=== PATIENT | male | born 1990 ===

== ENCOUNTER 2018-04-29 11:21 | Inpatient (IN) | payer SELFPAY ==
[2018-04-29 11:21] VITALS: BMI 27.3
[2018-04-29] MEDS ORDERED: MethylPREDNISolone 40 mg Vial IVP STA (11:29)
[2018-04-29] MEDS ORDERED: DiphenhydrAMINE 50 mg/ml Inj ONE (11:30)
[2018-04-29] MEDS ORDERED: DiphenhydrAMINE 50 mg/ml Inj IVP STA (11:32)
--- NOTE | 2018-04-29 11:47 | C.PDOC ---
History Of Present Illness 27 y/o male presents to ED with c/o swelling sensation to throat since he woke up this morning. Patient denies new food or drinks, known allergens, fever, sob , chest pain or any other complaints at this time. Time Seen by Provider: 04/29/18 11:28 Chief Complaint (Nursing): ENT Problem History Per: Patient History/Exam Limitations: no limitations Onset/Duration Of Symptoms: Days Current Symptoms Are (Timing): Still Present Past Medical History Reviewed: Historical Data, Nursing Documentation, Vital Signs Vital Signs: Last Vital Signs Temp 98.1 F 04/29/18 17:30 Pulse 69 04/29/18 17:30 Resp 20 04/29/18 17:30 BP 151/78 H 04/29/18 17:30 Pulse Ox 100 04/29/18 20:17 - Medical History PMH: No Chronic Diseases Surgical History: No Surg Hx - [facility] Procedures CLOSURE SKIN & SUBCUTANEOUS NEC (04/24/13) TETANUS TOXOID ADMINIST (04/24/13) Family History: States: No Known Family Hx - Social History Hx Tobacco Use: Yes Hx Alcohol Use: No Hx Substance Use: No - Immunization History Hx Tetanus Toxoid Vaccination: Yes Hx Influenza Vaccination: No Hx Pneumococcal Vaccination: No Review Of Systems Constitutional: Negative for: Fever, Chills ENT: Positive for: Throat Swelling. Negative for: Mouth Swelling Cardiovascular: Negative for: Chest Pain Respiratory: Negative for: Cough, Shortness of Breath Gastrointestinal: Negative for: Vomiting, Abdominal Pain Musculoskeletal: Negative for: Neck Pain Skin: Negative for: Rash Neurological: Negative for: Weakness, Numbness Physical Exam - Physical Exam Appears: Non-toxic, Other (anxious) Skin: Warm, Dry, No Rash Head: Atraumatic, Normacephalic Eye(s): bilateral: Normal Inspection Ear(s): Bilateral: Normal Nose: No Discharge, No Epistaxis Oral Mucosa: Moist, No Drooling, No Trismus Tongue: Normal Appearing, No Swelling Lips: Normal Appearing, No Swelling Teeth: Normal Dentition Throat: Erythema, No Exudate, No Drooling, Other (markedly enlarged uvula touching tongue) Neck: Supple Cardiovascular: Rhythm Regular, No Murmur Respiratory: Normal Breath Sounds, No Accessory Muscle Use, No Rales, No Rhonchi , No Wheezing Gastrointestinal/Abdominal: Soft, No Tenderness, No Guarding, No Rebound Neurological/Psych: Oriented x3, Normal Speech, Normal Cognition ED Course And Treatment - Laboratory Results Result Diagrams: 04/29/18 11:37 04/29/18 11:37 ECG: Interpreted By Me ECG Rhythm: Sinus Rhythm Rate From EC (BPM) O2 Sat by Pulse Oximetry: 100 (RA) Pulse Ox Interpretation: Normal Medical Decision Making Medical Decision Making: pt with sudden onset on waking of throat swelling- on exam uvula markedly swollen. not on any medications, no new substances, infection vs allergic reaction. Progress: 1:00pm- Mild swelling to lips noted and Uvula mildly worse Consult with Dr. Bear Canela and Dr. Jeremias Canela evaluated patient at bedside, instructed new medication, steroids and instructed patient NPO. All ordered Patient will be re evaluated in 4 hours [id number] pt re-evaluated by Dr Jeremias Canela, pt can go to telemetry per him, discussed with Dr Bear Canela and admitted. Disposition Discussed With Dr.: Fantasma Canela Doctor Will See Patient In The: Hospital - Disposition Disposition: HOSPITALIZED Disposition Time: 15:39 Condition: SERIOUS - Clinical Impression Clinical Impression: Uvulitis - PA / MOHS SURGEON/GENERAL DERMATOLOGIST / Resident Statement MD/DO has reviewed & agrees with the documentation as recorded. - Scribe Statement The provider has reviewed the documentation as recorded by the Virgieibhali Marquez All medical record entries made by the Mariama were at my direction and personally dictated by me. I have reviewed the chart and agree that the record accurately reflects my personal performance of the history, physical exam, medical decision making, and the department course for this patient. I have also personally directed, reviewed, and agree with the discharge instructions and disposition.
[2018-04-29 11:48] LABS: BASO % 0.6 % (0.0-2.0); EOS # 0.1 K/uL (0.0-0.7); EOS % 1.9 % (0.0-4.0); HEMOGLOBIN 15.9 g/dL (12.0-18.0); LYMPH # 2.3 K/uL (1.0-4.3); LYMPH % 40.5 % (20.0-40.0); MEAN CELL VOLUME 91.6 fL (80.0-94.0); MEAN CORPUSCULAR HEMOGLOBIN 32.4 pg (27.0-31.0); MEAN CORPUSCULAR HGB CONC 35.4 g/dL (33.0-37.0); MEAN PLATELET VOLUME 8.8 fL (7.2-11.7); MONO # 0.5 K/uL (0.0-0.8); MONO % 8.5 % (0.0-10.0); NEUT # 2.8 K/uL (1.8-7.0); NEUT % 48.5 % (50.0-75.0); NRBC % 0.1 % (0.0-2.0); RBC 4.91 Mil/uL (4.40-5.90); RED CELL DISTRIBUTION WIDTH 13.4 % (11.5-14.5); WHITE BLOOD COUNT 5.7 K/uL (4.8-10.8)
[2018-04-29 11:55] LABS: ALB/GLOB RATIO 1.6 (1.0-2.1); ALBUMIN 4.9 g/dL (3.5-5.0); ALT/SGPT 79 U/L (21-72); AST/SGOT 38 U/L (17-59); BLOOD UREA NITROGEN 13 mg/dL (9-20); CALCIUM 9.7 mg/dl (8.6-10.4); GFR NON-AFRICAN AMERICAN > 60
[2018-04-29] MEDS ORDERED: Piperacill/Tazo 3.375gm in Dex 3.375 GM/50 ML BAG IVPB STA (12:52)
[2018-04-29] MEDS ORDERED: Acetaminophen IV 1,000 MG in Premixed IV 1 EA IV ONE (13:00)
[2018-04-29] MEDS ORDERED: Piperacillin/Tazobact 3.375 gm 100 ML IVPB ONE (13:11)
[2018-04-29] MEDS ORDERED: Dexamethasone 4 mg/1 ml IV STA (13:12)
[2018-04-29] MEDS ORDERED: Albuterol-Ipratrop 3 mg / 0.5 (3 ml) UD INH STA (13:12)
[2018-04-29] MEDS ORDERED: Glycopyrrolate 1 mg/5mL Inj MDV IV ONE (13:13)
--- NOTE | 2018-04-29 13:20 | RAD ---
Date of service: 04/29/2018 PROCEDURE: CHEST RADIOGRAPH, 1 VIEW HISTORY: left side pain COMPARISON: None available. FINDINGS: LUNGS: Clear. PLEURA: No pneumothorax or pleural fluid seen. CARDIOVASCULAR: Normal. OSSEOUS STRUCTURES: No significant abnormalities. VISUALIZED UPPER ABDOMEN: Normal. OTHER FINDINGS: None. IMPRESSION: No active disease.
[2018-04-29] MEDS ORDERED: Albuterol-Ipratrop 3 mg / 0.5 (3 ml) UD ONE (13:29)
[2018-04-29] MEDS ORDERED: Phenol Topical 1.4% Throat Spray (180 ml) MT ONE (13:30)
[2018-04-29] MEDS ORDERED: Benzocaine 10% Oral Anesthetic (12 ml) MM ONE (13:30)
--- NOTE | 2018-04-29 13:52 | CP.PCM.CON ---
<Alfa Almazan - Last Filed: 04/29/18 14:56> History of Present Illness - History of Present Illness History of Present Illness: ICU Consult note Patient is a 27 year old male who states that he woke up this morning with swelling in his throat. He admits to drinking alcohol recently. He admits to felatio within the past 2 weeks. He denies exposure to any allergens. Denies history of oral ulcers. He is able to speak in full sentences, does not appear short of breath, is not currently drooling. Patient denies chest pain. He denies fevers, chills currently. PMH: none PSH: none Social: admits to alcohol use. Home Meds: none Allergies: NKDA Past Patient History - Past Social History Smoking Status: Light Smoker < 10 Cigarettes Daily - PSYCHIATRIC Hx Substance Use: No Meds Allergies/Adverse Reactions: Allergies Allergy/AdvReac Type Severity Reaction Status Date / Time No Known Allergies Allergy Verified 04/29/18 11:29 - Medications Medications: Current Medications Ceftriaxone Sodium 1 gm/ (Sodium Chloride) 100 mls @ 150 mls/hr IVPB ONCE ONE PRN Reason: Protocol Stop: 04/29/18 14:39 Physical Exam - Constitutional Additional comments: Patient is speaking in full sentences, - Head Exam Head Exam: ATRAUMATIC, NORMOCEPHALIC - Eye Exam Eye Exam: EOMI - ENT Exam ENT Exam: Mucous Membranes Moist Additional comments: Marked uvular edema - Expanded ENT Exam Expanded Mouth exam: moist, tongue normal. absent: drooling, muffled voice Throat exam: absent: Tonsillar Exudate - Neck Exam Neck exam: Positive for: Full Rom - Respiratory Exam Respiratory Exam: Clear to Auscultation Bilateral. absent: Rales, Rhonchi, Wheezes, Stridor - Cardiovascular Exam Cardiovascular Exam: REGULAR RHYTHM, +S1, +S2 - GI/Abdominal Exam GI & Abdominal Exam: Normal Bowel Sounds, Soft. absent: Tenderness - Extremities Exam Extremities exam: Positive for: pedal pulses present. Negative for: calf tenderness - Neurological Exam Neurological exam: Alert, Oriented x3 - Psychiatric Exam Psychiatric exam: Normal Affect, Normal Mood - Skin Skin Exam: Dry, Intact, Warm Results - Vital Signs Recent Vital Signs: Last Vital Signs Temp 97.8 F 04/29/18 12:45 Pulse 83 04/29/18 12:45 Resp 18 04/29/18 12:45 BP 136/80 04/29/18 12:45 Pulse Ox 100 04/29/18 13:45 - Labs Result Diagrams: 04/29/18 11:37 04/29/18 11:37 Labs: Laboratory Results - last 24 hr 04/29/18 04/29/18 11:37 11:37 WBC 5.7 RBC 4.91 Hgb 15.9 Hct 44.9 MCV 91.6 MCH 32.4 H MCHC 35.4 RDW 13.4 Plt Count 312 MPV 8.8 Neut % (Auto) 48.5 L Lymph % (Auto) 40.5 H [place] % (Auto) 8.5 Eos % (Auto) 1.9 Baso % (Auto) 0.6 Neut # (Auto) 2.8 Lymph # (Auto) 2.3 [place] # (Auto) 0.5 Eos # (Auto) 0.1 Baso # (Auto) 0.0 Sodium 144 Potassium 4.3 Chloride 106 Carbon Dioxide 23 Anion Gap 20 BUN 13 Creatinine 0.7 L Est GFR ( Amer) > 60 Est GFR (Non-Af Amer) > 60 Random Glucose 106 Calcium 9.7 Total Bilirubin 0.5 AST 38 ALT 79 H Alkaline Phosphatase 68 Total Protein 7.9 Albumin 4.9 Globulin 3.0 Albumin/Globulin Ratio 1.6 Assessment & Plan - Assessment and Plan (Free Text) Assessment: 27 year old male who presents with swelling in his throat this morning. Patient received Solumedrol, Pepcid, Benadryl without significant improvement initially. Plan: Neuro: Alert and oriented Cardiovascular Stable Pulmonary: Saturating well on RA ENT: Patient received Solumedrol, Pepcid, Benadryl, Zosyn in ED. Glycopyrrolate 0.1mg Duonebs Q5 x3 Oral GC swab obtained Dexamethasone 10mg IV Keep on strict NPO Rocephin 1g IV EKG did not reveal prolonged QTc Azithromycin 500mg IV daily Phenol/menthol antiseptic spray applied topically GI: Strict NPO Renal: Continue to monitor electrolytes Heme H/H stable ID: Continue abx F/u GC culture Dispo: Patient stable to be admitted to Telemetry. Case discussed with Dr. Canela <Cary Canela - Last Filed: 04/29/18 15:35> Meds - Medications Medications: Current Medications Azithromycin 500 mg/ Sodium (Chloride) 250 mls @ 167 mls/hr IVPB Q24H AIDE PRN Reason: Protocol Clindamycin Phosphate 600 mg/ (Sodium Chloride) 54 mls @ 100 mls/hr IVPB Q8H AIDE PRN Reason: Protocol Ketorolac Tromethamine (Toradol) 30 mg IVP Q6H PRN PRN Reason: Pain, severe (8-10) Ketorolac Tromethamine (Toradol) 15 mg IVP Q6H PRN PRN Reason: Pain, moderate (4-7) Pantoprazole Sodium (Protonix Inj) 40 mg IVP DAILY [facility] Results - Vital Signs Recent Vital Signs: Last Vital Signs Temp 97.8 F 04/29/18 12:45 Pulse 81 04/29/18 14:21 Resp 16 04/29/18 14:21 BP 133/75 04/29/18 14:21 Pulse Ox 100 04/29/18 15:29 - Labs Result Diagrams: 04/29/18 11:37 04/29/18 11:37 Labs: Laboratory Results - last 24 hr 04/29/18 04/29/18 04/29/18 11:37 11:37 13:46 WBC 5.7 RBC 4.91 Hgb 15.9 Hct 44.9 MCV 91.6 MCH 32.4 H MCHC 35.4 RDW 13.4 Plt Count 312 MPV 8.8 Neut % (Auto) 48.5 L Lymph % (Auto) 40.5 H [place] % (Auto) 8.5 Eos % (Auto) 1.9 Baso % (Auto) 0.6 Neut # (Auto) 2.8 Lymph # (Auto) 2.3 [place] # (Auto) 0.5 Eos # (Auto) 0.1 Baso # (Auto) 0.0 Sodium 144 Potassium 4.3 Chloride 106 Carbon Dioxide 23 Anion Gap 20 BUN 13 Creatinine 0.7 L Est GFR ( Amer) > 60 Est GFR (Non-Af Amer) > 60 Random Glucose 106 Calcium 9.7 Total Bilirubin 0.5 AST 38 ALT 79 H Alkaline Phosphatase 68 Total Protein 7.9 Albumin 4.9 Globulin 3.0 Albumin/Globulin Ratio 1.6 Urine Opiates Screen Negative Urine Methadone Screen Negative Ur Barbiturates Screen Negative Ur Phencyclidine Scrn Positive H Ur Amphetamines Screen Negative U Benzodiazepines Scrn Negative U Oth Cocaine Metabols Negative U Cannabinoids Screen Negative Assessment & Plan - Assessment and Plan (Free Text) Plan: Patient seen and examined a bedside. Patient presents to [facility] with c/ o swollen uvula. Patient able to articulate well, no hoarsness, no stridor. Patient's symptoms improved with dexamethasone, gycopyrolate and bronchodilators. -STrict NPO -IV ceftriaxone/azithormycine -Patient had recent oral sex; G/C pending. -Patient remains hemodynamically stable. d/w ER team - Date & Time Date: 04/29/18 Time: 15:35
[2018-04-29 14:11] LABS: BARBITURATES, UR NEGATIVE (NEGATIVE); BENZODIAZEPINES, UR NEGATIVE (NEGATIVE); OPIATES, UR NEGATIVE (NEGATIVE)
[2018-04-29 14:30] LABS: PHENCYCLIDINE, UR POSITIVE (NEGATIVE)
[2018-04-29] MEDS ORDERED: Clindamycin 600mg/50ml NS 600 MG/50 ML BAG IVPB ONE (15:38)
[2018-04-29] MEDS ORDERED: Iodixanol 320 MG/ML 100 ML BOTTLE IV ONE (15:51)
[2018-04-29] MEDS ORDERED: Azithromycin 500mg/250ML NS 500 MG/250 ML BAG IVPB ONE (15:58)
[2018-04-29] MEDS ORDERED: Azithromycin 500 MG in Sodium Chloride 0.9% 250 ML IVPB SCH (16:00)
--- NOTE | 2018-04-29 16:52 | CP.PCM.HP ---
<Maite Moore - Last Filed: 04/29/18 19:05> History of Present Illness - History of Present Illness History of Present Illness: cc: enlarged uvula Mr. Aly is a 22 year old male with no significant PMH complaining of enlarged uvula which caused him pain since he woke up this morning. The constant pain is rated 7/10 with radiation to the inside of his R ear. Talking, swallowing, and chewing worsen the pain; internet review instructed him to drink water which did not help. He was unable to describe the pain - just that it felt "weird"; Denied sharp, dull, achy, numb, tingly. Denies trauma to the area, eating anything out of the ordinary, giving oral sex recently, forced vomiting. Admits to gagging nearly every day when brushing his teeth, and spits out blood with toothpaste. He has not gone to the dentist recently and admits to needing dental work done as he has many cavities. He was able to sleep through the night normally. Did not feel pain last night when he was partying. Admits to drinking excessively and smoking last night. Admits odynophagia, dysphagia, excessive salivation, toothache. Denies fever, chills, headache, chest pain, shortness of breath, nausea, vomiting, diarrhea, tongue swelling, angioedema, slurring speech, difficulty speaking, palpitations, change in appetite, wheezing, change in weight, change in vision, change in weight. PMH: denies PSxH: denies FamHx: unknown Med: denies All: NKDA SocHx: tobacco: smokes 1-10 cigarettes/day for last ~15 years, drinks 1L liquor/ day, denies drugs (UDS positive PCP) Full Code Proxy: refused to designate PMD: unknown Present on Admission - Present on Admission Any Indicators Present on Admission: No Review of Systems - Constitutional Constitutional: absent: Chills, Excessive Sweating, Fatigue, Fever, Headache, Lethargy, Weight Gain, Weight Loss, Weakness - EENT Eyes: absent: Blurred Vision, Change in Vision, Diplopia Ears: absent: Ear Pain, Dizziness Nose/Mouth/Throat: Dental Pain, Dysphagia, Odynophagia, Sore Throat. absent: Lip Swelling, Mouth Lesions, Tongue Swelling, Neck Pain, Neck Mass - Cardiovascular Cardiovascular: Pain Radiating to Arm/Neck/Jaw. absent: Chest Pain, Diaphoresis , Dyspnea, Leg Edema, Lightheadedness, Palpitations - Respiratory Respiratory: Excessive Mucous Production. absent: Dyspnea, Wheezing - Gastrointestinal Gastrointestinal: absent: Abdominal Pain, Diarrhea, Fecal Incontinence, Hematemesis, Hematochezia, Nausea, Vomiting - Genitourinary Genitourinary: absent: Dysuria, Hematuria - Musculoskeletal Musculoskeletal: absent: Numbness, Tingling - Integumentary Integumentary: absent: Rash - Neurological Neurological: absent: Dizziness, Numbness, Headaches, Tingling - Endocrine Endocrine: absent: Palpitations - Hematologic/Lymphatic Hematologic: absent: Lymphadenopathy Past Patient History - Past Social History Smoking Status: Light Smoker < 10 Cigarettes Daily Alcohol: None Drugs: Denies, Other (UDS positive for PCP) - PSYCHIATRIC Hx Substance Use: No Meds Allergies/Adverse Reactions: Allergies Allergy/AdvReac Type Severity Reaction Status Date / Time No Known Allergies Allergy Verified 04/29/18 11:29 Physical Exam - Constitutional Appears: Non-toxic, No Acute Distress - Head Exam Head Exam: NORMOCEPHALIC Additional comments: Multiple scars from healed lacerations. - Eye Exam Eye Exam: EOMI, Normal appearance Pupil Exam: NORMAL ACCOMODATION - ENT Exam ENT Exam: Mucous Membranes Moist, Normal External Ear Exam Additional comments: Uvula is midline, enlarged, erythematous. Bilateral enlargement of tonsils. Tonsils were not kissing, non-erythematous, and non-exudative. - Neck Exam Neck exam: Positive for: Lymphadenopathy. Negative for: Thyromegaly - Respiratory Exam Respiratory Exam: Clear to Auscultation Bilateral, NORMAL BREATHING PATTERN. absent: Accessory Muscle Use, Decreased Breath Sounds, Rales, Rhonchi, Wheezes, Respiratory Distress - Cardiovascular Exam Cardiovascular Exam: RRR, +S1, +S2 - GI/Abdominal Exam GI & Abdominal Exam: Normal Bowel Sounds, Soft. absent: Firm, Guarding, Organomegaly, Rebound, Rigid Additional comments: Central obesity. - Rectal Exam Rectal Exam: Deferred - Extremities Exam Extremities exam: Positive for: normal capillary refill, normal inspection, pedal pulses present. Negative for: calf tenderness, pedal edema Additional comments: Radial and dorsalis pedis pulses normal and equal. - Back Exam Back exam: NORMAL INSPECTION - Neurological Exam Neurological exam: Alert, CN II-XII Intact, Oriented x3 - Psychiatric Exam Psychiatric exam: Normal Affect, Normal Mood - Skin Skin Exam: Dry, Intact, Normal Color, Warm Results - Vital Signs Recent Vital Signs: Last Vital Signs Temp 97.8 F 04/29/18 12:45 Pulse 81 04/29/18 14:21 Resp 16 04/29/18 14:21 BP 133/75 04/29/18 14:21 Pulse Ox 100 04/29/18 15:39 - Labs Result Diagrams: 04/29/18 11:37 04/29/18 11:37 Labs: Laboratory Results - last 24 hr 04/29/18 04/29/18 04/29/18 11:37 11:37 13:46 WBC 5.7 RBC 4.91 Hgb 15.9 Hct 44.9 MCV 91.6 MCH 32.4 H MCHC 35.4 RDW 13.4 Plt Count 312 MPV 8.8 Neut % (Auto) 48.5 L Lymph % (Auto) 40.5 H [place] % (Auto) 8.5 Eos % (Auto) 1.9 Baso % (Auto) 0.6 Neut # (Auto) 2.8 Lymph # (Auto) 2.3 [place] # (Auto) 0.5 Eos # (Auto) 0.1 Baso # (Auto) 0.0 Sodium 144 Potassium 4.3 Chloride 106 Carbon Dioxide 23 Anion Gap 20 BUN 13 Creatinine 0.7 L Est GFR ( Amer) > 60 Est GFR (Non-Af Amer) > 60 Random Glucose 106 Calcium 9.7 Total Bilirubin 0.5 AST 38 ALT 79 H Alkaline Phosphatase 68 Total Protein 7.9 Albumin 4.9 Globulin 3.0 Albumin/Globulin Ratio 1.6 Urine Opiates Screen Negative Urine Methadone Screen Negative Ur Barbiturates Screen Negative Ur Phencyclidine Scrn Positive H Ur Amphetamines Screen Negative U Benzodiazepines Scrn Negative U Oth Cocaine Metabols Negative U Cannabinoids Screen Negative Assessment & Plan - Assessment and Plan (Free Text) Assessment: 27yoM with PMH polysubstance abuse admitted for uvulitis. Plan: 1) Uvulitis CXR negative CT soft tissue neck: no evidence of pharyngeal or peritonsillar abscess, mild adenoid hypertrophy, chronic right maxillary sinusitis ENT consulted: Dr. Lu - help appreciated - not allergic type reaction - not phlegmon vs. abscess source of infection - recommends against antibiotics f/u throat cultures for GC and strep received 125mg Solumedrol in ED Started on Solumedrol 60mg IC q8 -steroid taper on d/c tomorrow Monitor for signs of improvement 2) PCP use Patient denies illicit drug use on multiple questionings - does not know if alcohol or cigarettes could have been spiked Considering heavy alcohol use, regular ICDU certainly a possibility Provide Narcotics Anonymous information on discharge 3) Alcohol use No signs of intoxication or withdrawal on exam f/u stat EtOH level Provide Alcoholics Anonymous information on discharge 4) PPx GI: Protonix 40mg IVP daily DVT: risk score 0 -> chemical AC not indicated, SCDs Regular diet d/w Dr. Melany Moore PGY-1 - Date & Time Date: 04/29/18 Time: 16:20 <Fantasma Canela - Last Filed: 04/30/18 18:38> Results - Vital Signs Recent Vital Signs: Last Vital Signs Temp 97.6 F 04/30/18 07:36 Pulse 60 04/30/18 07:36 Resp 20 04/30/18 07:36 BP 154/83 H 04/30/18 07:36 Pulse Ox 99 04/30/18 07:36 - Labs Result Diagrams: 04/30/18 07:29 04/30/18 07:29 Labs: Laboratory Results - last 24 hr 04/29/18 04/30/18 04/30/18 20:16 07:29 07:29 WBC 15.0 H D RBC 4.87 Hgb 15.5 Hct 44.3 MCV 90.9 MCH 31.9 H MCHC 35.1 RDW 12.8 Plt Count 300 MPV 9.3 Neut % (Auto) 90.2 H Lymph % (Auto) 6.3 L [place] % (Auto) 3.2 Eos % (Auto) 0.1 Baso % (Auto) 0.2 Neut # (Auto) 13.6 H Lymph # (Auto) 0.9 L [place] # (Auto) 0.5 Eos # (Auto) 0.0 Baso # (Auto) 0.0 Neutrophils % (Manual) 90 H Band Neutrophils % 1 Lymphocytes % (Manual) 6 L Monocytes % (Manual) 3 Toxic Granulation Present Platelet Estimate Normal Large Platelets Present Anisocytosis (manual) Slight Sodium 139 Potassium 4.4 Chloride 102 Carbon Dioxide 25 Anion Gap 17 BUN 17 Creatinine 0.7 L Est GFR ( Amer) > 60 Est GFR (Non-Af Amer) > 60 Random Glucose 137 H Calcium 9.7 Alcohol, Quantitative 100 H Attending/Attestation - Attestation I have personally seen and examined this patient.: Yes I have fully participated in the care of the patient.: Yes I have reviewed all pertinent clinical information: Yes Notes (Text): 04/30/18 18:38 This is a late entry. History, Physical, Assessment and Plan, and all orders were gone over with resident Dr. Moore on 04/29/18. Fantasma Canela D.O.
--- NOTE | 2018-04-29 16:55 | CT ---
Date of service: 04/29/2018 PROCEDURE: CT NECK WITH CONTRAST HISTORY: Possible Pharyngeal abscess.Uvula erythema/enlarge COMPARISON: None available. TECHNIQUE: CT of the neck with intravenous contrast. Coronal and sagittal reformats generated. Intravenous contrast dose: 100 mL Visipaque Radiation dose: DLP 466.58 mGy-cm This CT exam was performed using one or more of the following dose reduction techniques: Automated exposure control, adjustment of the mA and/or kV according to patient size, and/or use of iterative reconstruction technique. FINDINGS: NASOPHARYNX: Mild adenoid hypertrophy, otherwise within normal limits. SUPRAHYOID NECK: No mass or abnormal enhancement in the oropharynx, oral cavity, parapharyngeal space and retropharyngeal space. No evidence of pharyngeal or peritonsillar abscess. INFRAHYOID NECK: No mass or abnormal enhancement in the larynx, hypopharynx, and supraglottic space. Vocal cords intact. MASS: None. GLANDS: Parotid and submandibular glands unremarkable. Normal size thyroid gland, without nodule. LYMPH NODES: Normal. No lymphadenopathy. CERVICAL SPINE: No fracture or focal lesion. VASCULAR STRUCTURES: Normal intravascular enhancement. OTHER FINDINGS: Moderate polypoid mucosal thickening in the right maxillary sinus. The remaining included paranasal sinuses are clear. The mastoid air cells are clear IMPRESSION: No evidence of pharyngeal or peritonsillar abscess. Mild adenoid hypertrophy. Chronic right maxillary sinusitis.
[2018-04-29 17:36] VITALS: RESP 20
[2018-04-29] MEDS ORDERED: Oxycodone/Acetaminophen 5/325 mg Tab PO STA (21:59)
--- NOTE | 2018-04-30 05:32 | CON ---
DATE: 04/29/2018 REASON FOR CONSULTATION: Enlarged uvula. REQUESTING PHYSICIAN: Emergency room. HISTORY OF PRESENT ILLNESS: This is a 27-year-old male who presented to the ER today with dysphagia since this morning. It was moderate in intensity, constant and pharyngeal. No hoarseness, no nasal congestion, no hearing loss. PAST MEDICAL HISTORY: As noted in the chart by me. MEDICATIONS: As noted in the chart by me. ALLERGIES: NO KNOWN DRUG ALLERGIES. PHYSICAL EXAMINATION: HEAD: Atraumatic and normocephalic. FACE: Good facial movements bilaterally. CONSTITUTIONAL: Well fed, well nourished. COMMUNICATION: Communicates well and appropriately. EXTERNAL NOSE AND EARS: No masses, no lesions, no erythema, and no edema. INTERNAL NOSE: Deviated septum. No masses, no lesions, no erythema, and no edema. ORAL CAVITY AND OROPHARYNX: Enlarged uvula with edema. No masses, no lesions, no erythema, and no edema. LIPS AND GUMS: No masses, no lesions, no erythema, and no edema. NECK: Supple. THYROID: No thyromegaly. No goiter. LYMPH NODES: No lymphadenopathy of the neck. ASSESSMENT: 1. Uvulitis. 2. Deviated septum. PLAN: Steroids. This is usually a viral cause. The patient should be okay to be discharged home by tomorrow. Tho Lu MD
[2018-04-30 07:38] VITALS: BP 154/83; PULSE 60; TEMP 97.6; O2SAT 99
[2018-04-30 07:52] LABS: BASO % 0.2 % (0.0-2.0); EOS % 0.1 % (0.0-4.0); HEMOGLOBIN 15.5 g/dL (12.0-18.0); LYMPH # 0.9 K/uL (1.0-4.3); LYMPH % 6.3 % (20.0-40.0); MEAN CELL VOLUME 90.9 fL (80.0-94.0); MEAN CORPUSCULAR HEMOGLOBIN 31.9 pg (27.0-31.0); MEAN CORPUSCULAR HGB CONC 35.1 g/dL (33.0-37.0); MEAN PLATELET VOLUME 9.3 fL (7.2-11.7); MONO # 0.5 K/uL (0.0-0.8); MONO % 3.2 % (0.0-10.0); NEUT # 13.6 K/uL (1.8-7.0); NEUT % 90.2 % (50.0-75.0); PLATELET COUNT 300 K/uL (130-400); RBC 4.87 Mil/uL (4.40-5.90); RED CELL DISTRIBUTION WIDTH 12.8 % (11.5-14.5)
[2018-04-30 08:10] LABS: BLOOD UREA NITROGEN 17 mg/dL (9-20); CALCIUM 9.7 mg/dl (8.6-10.4); GFR NON-AFRICAN AMERICAN > 60
[2018-04-30 09:21] LABS: ANISOCYTOSIS SLIGHT; BANDS 1 % (0-2); LYMPHOCYTE 6 % (20-40); MONOCYTE 3 % (0-10); NEUTROPHIL 90 % (50-75); PLATELET ESTIMATE NORMAL (NORMAL); TOTAL CELLS COUNTED 100
[2018-04-30 09:22] LABS: LARGE PLATELETS PRESENT; TOXIC GRANULATION PRESENT
--- NOTE | 2018-04-30 09:55 | CP.PCM.PN ---
Subjective - Date & Time of Evaluation Date of Evaluation: 04/30/18 Time of Evaluation: 09:30 - Subjective Subjective: Hospitalist Progress Note Patient was seen and examined at 9:30 AM 04/30/18 364 A Please see Assessment and Plans below for details. Upon FULL ROS Soreness/Pain in the back of the throat has improved. Still with some painful swallowing with dinner of rice and beans last night ( brought in by friends) but less than when he came in NO n/v/d/c NO abdominal pain NO cough NO sinus/nasal congestion NO fever/chills NO joint pain NO chest pain/palpations NO SOB/Wheezing/Dyspnea NO ARRIAGA NO lightheadedness/dizziness NO paresthesias NO new changes in vision NO new changes in hearing Exam: General: AAOX3, NAD HEENT: NCA, EOMI, PERRLA, NO cervical/supraclavicular/submandibular lymphadenopathy, Pharyngea/Uvula erythema and what appears to be a small amount of whitish exudate on the left tonsilar area (could this be left over food?), Nasal Turbinates are nonerythematous/nonedematous, Oral Mucosa is moist Cardio: NS1 and NS2, NO M/R/G Resp: CTA B/L, NO R/R/W GI: BSx4, Soft, NT, NO HSM, NO guarding/rebound tenderness Ext: Pulses are strong and equal, Capillary Refill is 2 seconds, NO edema Neuro: CN II through XII are grossly intact Assessments: 1). Pharyngitis/Uvulitis Soft Tissue Neck with and without contrast was unremarkable but did show Chronic Sinusitis Chest X Ray unremarkable Seen by ENT Dr. Lu: recommends steroid taper WBC elevated but likely secondary to the steroid treatment. NO fevers Symptoms improved and NO evidence of respiratory compromise Considering findings on exam today and the evidence of sinusitis on Soft Tissue Neck will add Augmentin to the Prednisone Taper 2). Hx of Alcohol Use Counseled upon admission 3). Hx of PCP Use UDS positive but patient stated to resident upon discharge that he does not take this drug Disposition: Symptoms have improved and no evidence of respiratory compromise Stable for discharge with outpatient follow up The following instructions were explained to patient and copy will need to be provided to him upon discharge: 1). You stated that you do not have a primary care physician. Therefore please schedule follow up with one of the following clinics (which ever one that you can obtain the earliest appointment) to help coordinate your health care. One of these clinics will be your primary care physician to help set up appointments and provide you with future prescriptions that you will need to have filled at your pharmacy. You will need to follow up the results of your throat cultures through one of these clinices. This appointment must take place in the next 7 days: [facility] Floor B of [facility] ([phone]) [facility] ([phone]) [address] [place], [place] 2). Please have the following prescriptions filled at your pharmacy on your way from the hospital: Augmentin 875/125 mg, 1 tablet by mouth 2 times a day with breakfast and dinner (8 AM and 8 PM), Dispense #28 Prednisone 10 mg, 5 tablets by mouth at once 05/01/18, 4 tablets by mouth at once 05/02/18, 3 tablets by mouth at once 05/03/18, 2 tablet by mouth at once 05/04/18, and 1 tablet by mouth at once 05/05/18. Please take at 8 AM every day Omeprazole 40 mg, 1 tablet by mouth 1 time a day at 8 PM, Dispense #5 3). Please have a faroese yogurt containing probiotic (good bacteria) at 10 AM and 6 PM for the next 44 days to make sure that the good bacteria are brought back into your colon. 4). You must stop drinking alcohol. It will kill you. Please go to Alcohol Anonymous at [facility] located at [address] [place] [address] in [place], [place]. The number is [phone]. 5). You urine tested positive for PCP. This drug will also kill you. call to find resources near you for help. 6). Please take care and be well. 7). Return to the Emergency Room should your symptoms worsen. 8). Please follow the above instructions. Failure to do so will result in serious consequences to your health. Fantasma Canela D.O. Objective - Vital Signs/Intake and Output Vital Signs (last 24 hours): Temp Pulse Resp BP Pulse Ox 97.6 F 60 20 154/83 H 99 04/30/18 07:36 04/30/18 07:36 04/30/18 07:36 04/30/18 07:36 04/30/18 07:36 Intake and Output: 04/30/18 04/30/18 06:59 18:59 Intake Total 590 Balance 590 - Medications Medications: Current Medications Ketorolac Tromethamine (Toradol) 30 mg IVP Q6H PRN PRN Reason: Pain, severe (8-10) Last Admin: 04/29/18 21:19 Dose: 30 mg Ketorolac Tromethamine (Toradol) 15 mg IVP Q6H PRN PRN Reason: Pain, moderate (4-7) Methylprednisolone (Solu-Medrol) 60 mg IV Q8H [facility] Last Admin: 04/30/18 01:21 Dose: 60 mg Pantoprazole Sodium (Protonix Inj) 40 mg IVP DAILY [facility] Last Admin: 04/29/18 16:15 Dose: 40 mg - Labs Labs: 04/30/18 07:29 04/30/18 07:29
--- NOTE | 2018-04-30 10:29 | CP.PCM.DIS ---
Provider - Provider Date of Admission: 04/29/18 15:14 Attending physician: Fantasma Canela MD Primary care physician: none Consults: ICU- Dr. Canela ENT- Dr. Lu Time Spent in preparation of Discharge (in minutes): 35 Hospital Course - Lab Results Lab Results: Most Recent Lab Values WBC 15.0 K/uL (4.8-10.8) H D 04/30/18 07:29 RBC 4.87 Mil/uL (4.40-5.90) 04/30/18 07:29 Hgb 15.5 g/dL (12.0-18.0) 04/30/18 07:29 Hct 44.3 % (35.0-51.0) 04/30/18 07: MCV 90.9 fL (80.0-94.0) 04/30/18 07: MCH 31.9 pg (27.0-31.0) H 04/30/18 07: MCHC 35.1 g/dL (33.0-37.0) 04/30/18 07:29 RDW 12.8 % (11.5-14.5) 04/30/18 07:29 Plt Count 300 K/uL (130-400) 04/30/18 07:29 MPV 9.3 fL (7.2-11.7) 04/30/18 07:29 Neut % (Auto) 90.2 % (50.0-75.0) H 04/30/18 07: Lymph % (Auto) 6.3 % (20.0-40.0) L 04/30/18 07:29 Heard % (Auto) 3.2 % (0.0-10.0) 04/30/18 07:29 Eos % (Auto) 0.1 % (0.0-4.0) 04/30/18 07:29 Baso % (Auto) 0.2 % (0.0-2.0) 04/30/18 07:29 Neut # (Auto) 13.6 K/uL (1.8-7.0) H 04/30/18 07:29 Lymph # (Auto) 0.9 K/uL (1.0-4.3) L 04/30/18 07:29 Heard # (Auto) 0.5 K/uL (0.0-0.8) 04/30/18 07:29 Eos # (Auto) 0.0 K/uL (0.0-0.7) 04/30/18 07:29 Baso # (Auto) 0.0 K/uL (0.0-0.2) 04/30/18 07:29 Neutrophils % (Manual) 90 % (50-75) H 04/30/18 07:29 Band Neutrophils % 1 % (0-2) 04/30/18 07:29 Lymphocytes % (Manual) 6 % (20-40) L 04/30/18 07:29 Monocytes % (Manual) 3 % (0-10) 04/30/18 07:29 Toxic Granulation Present 04/30/18 07:29 Platelet Estimate Normal (NORMAL) 04/30/18 07:29 Large Platelets Present 04/30/18 07:29 Anisocytosis (manual) Slight 04/30/18 07:29 Sodium 139 mmol/L (132-148) 04/30/18 07:29 Potassium 4.4 mmol/L (3.6-5.2) 04/30/18 07:29 Chloride 102 mmol/L (98-107) 04/30/18 07:29 Carbon Dioxide 25 mmol/L (22-30) 04/30/18 07:29 Anion Gap 17 (10-20) 04/30/18 07:29 BUN 17 mg/dL (9-20) 04/30/18 07:29 Creatinine 0.7 mg/dL (0.8-1.5) L 04/30/18 07:29 Est GFR ( Amer) > 60 04/30/18 07:29 Est GFR (Non-Af Amer) > 60 04/30/18 07:29 Random Glucose 137 mg/dL (75-110) H 04/30/18 07:29 Calcium 9.7 mg/dl (8.6-10.4) 04/30/18 07:29 Total Bilirubin 0.5 mg/dL (0.2-1.3) 04/29/18 11:37 AST 38 U/L (17-59) 04/29/18 11:37 ALT 79 U/L (21-72) H 04/29/18 11:37 Alkaline Phosphatase 68 U/L (38-126) 04/29/18 11:37 Total Protein 7.9 g/dL (6.3-8.3) 04/29/18 11:37 Albumin 4.9 g/dL (3.5-5.0) 04/29/18 11:37 Globulin 3.0 gm/dL (2.2-3.9) 04/29/18 11:37 Albumin/Globulin Ratio 1.6 (1.0-2.1) 04/29/18 11:37 Urine Opiates Screen Negative (NEGATIVE) 04/29/18 13:46 Urine Methadone Screen Negative (NEGATIVE) 04/29/18 13:46 Ur Barbiturates Screen Negative (NEGATIVE) 04/29/18 13:46 Ur Phencyclidine Scrn Positive (NEGATIVE) H 04/29/18 13:46 Ur Amphetamines Screen Negative (NEGATIVE) 04/29/18 13:46 U Benzodiazepines Scrn Negative (NEGATIVE) 04/29/18 13:46 U Oth Cocaine Metabols Negative (NEGATIVE) 04/29/18 13:46 U Cannabinoids Screen Negative (NEGATIVE) 04/29/18 13:46 Alcohol, Quantitative 100 mg/dl (0-10) H 04/29/18 20:16 - Hospital Course Hospital Course: Upon hospital admission: Sheeba is a 22 year old male with no significant PMH complaining of enlarged uvula which caused him pain since he woke up this morning. The constant pain is rated 7/10 with radiation to the inside of his R ear. Talking, swallowing, and chewing worsen the pain; internet review instructed him to drink water which did not help. He was unable to describe the pain - just that it felt "weird"; Denied sharp, dull, achy, numb, tingly. Denies trauma to the area, eating anything out of the ordinary, giving oral sex recently, forced vomiting. Admits to gagging nearly every day when brushing his teeth, and spits out blood with toothpaste. He has not gone to the dentist recently and admits to needing dental work done as he has many cavities. He was able to sleep through the night normally. Did not feel pain last night when he was partying. Admits to drinking excessively and smoking last night. Admits odynophagia, dysphagia, excessive salivation, toothache. Denies fever, chills, headache, chest pain, shortness of breath, nausea, vomiting, diarrhea, tongue swelling, angioedema, slurring speech, difficulty speaking, palpitations, change in appetite, wheezing, change in weight, change in vision, change in weight. PMH: denies PSxH: denies FamHx: unknown Med: denies All: NKDA SocHx: tobacco: smokes 1-10 cigarettes/day for last ~15 years, drinks 1L liquor/ day, denies drugs (UDS positive PCP) Full Code Proxy: refused to designate PMD: unknown During hospital course, the patient was evaluated and treated for Uvulitis. CT soft tissue neck: no evidence of pharyngeal or peritonsillar abscess, mild adenoid hypertrophy, chronic right maxillary sinusitis. CXR was negative. ENT consulted: Dr. Lu. It was deemed that he did not have an allergic type reaction. He did not have phlegmon vs. abscess source of infection - antibiotics not recommended. Throat cultures were taken, but results not yet available. He received 125mg Solumedrol in ED and decreased to Solumedrol 60mg IC q8. He will ultimately be d/c'd on a PO steroid taper. The patient did well during this admission, responded well to treatment, and was deemed stable for discharge. Upon hospital discharge, the patient was provided with the following instructions: 1). You stated that you do not have a primary care physician. Therefore please schedule follow up with one of the following clinics (which ever one that you can obtain the earliest appointment) to help coordinate your health care. One of these clinics will be your primary care physician to help set up appointments and provide you with future prescriptions that you will need to have filled at your pharmacy. You will need to follow up the results of your throat cultures through one of these clinices. This appointment must take place in the next 7 days: [facility] Floor B of [facility] ([phone]) [address] [facility] ([phone]) [address] [place] [address] 2). Please have the following prescriptions filled at your pharmacy on your way from the hospital: Augmentin 875/125 mg, 1 tablet by mouth 2 times a day with breakfast and dinner (8 AM and 8 PM), Dispense #28 Prednisone 10 mg, 5 tablets by mouth at once 05/01/18, 4 tablets by mouth at once 05/02/18, 3 tablets by mouth at once 05/03/18, 2 tablet by mouth at once 05/04/18, and 1 tablet by mouth at once 05/05/18. Please take at 8 AM every day Omeprazole 40 mg, 1 tablet by mouth 1 time a day at 8 PM, Dispense #5 3). Please have a kenyan yogurt containing probiotic (good bacteria) at 10 AM and 6 PM for the next 44 days to make sure that the good bacteria are brought back into your colon. 4). You must stop drinking alcohol. It will kill you. Please go to Alcohol Anonymous at [facility] located at [address] [place] [address] in [place], [place]. The number is [phone]. 5). You urine tested positive for PCP. This drug will also kill you. call [phone] to find resources near you for help. 6). Please take care and be well. 7). Return to the Emergency Room should your symptoms worsen. 8). Please follow the above instructions. Failure to do so will result in serious consequences to your health. This is a summary of the patient's hospital admission, see chart for comprehensive detail. - Date & Time of H&P Date of H&P: 04/29/18 Time of H&P: 09:50 Discharge Exam - Additional Findings Additional findings: - Constitutional Appears: Non-toxic, No Acute Distress - Head Exam Head Exam: NORMOCEPHALIC Additional comments: Multiple scars from healed lacerations. - Eye Exam Eye Exam: EOMI, Normal appearance Pupil Exam: NORMAL ACCOMODATION - ENT Exam ENT Exam: Mucous Membranes Moist, Normal External Ear Exam Additional comments: Uvula is midline, non-erythematous. Bilateral enlargement of tonsils (mild). Tonsils were not kissing, non- erythematous, and non-exudative. - Neck Exam Neck exam: Positive for: Lymphadenopathy. Negative for: Thyromegaly - Respiratory Exam Respiratory Exam: Clear to Auscultation Bilateral, NORMAL BREATHING PATTERN. absent: Accessory Muscle Use, Decreased Breath Sounds, Rales, Rhonchi, Wheezes, Respiratory Distress - Cardiovascular Exam Cardiovascular Exam: RRR, +S1, +S2 - GI/Abdominal Exam GI & Abdominal Exam: Normal Bowel Sounds, Soft. absent: Firm, Guarding, Organomegaly, Rebound, Rigid Additional comments: Central obesity. - Extremities Exam Extremities exam: Positive for: normal capillary refill, normal inspection, pedal pulses present. Negative for: calf tenderness, pedal edema Additional comments: Radial and dorsalis pedis pulses normal and equal. - Back Exam Back exam: NORMAL INSPECTION - Neurological Exam Neurological exam: Alert, CN II-XII Intact, Oriented x3 - Psychiatric Exam Psychiatric exam: Normal Affect, Normal Mood - Skin Skin Exam: Dry, Intact, Normal Color, Warm Discharge Plan - Discharge Medications Prescriptions: Amoxicillin/Clavulanate [Augmentin 875 MG-125 MG] 1 tab PO Q12H #28 tab Omeprazole 40 mg PO DAILY #5 - Follow Up Plan Condition: GOOD Disposition: HOME/ ROUTINE Instructions: Sore Throat, Adult (DC), Amoxicillin and Clavulanate, Omeprazole , Prednisone Additional Instructions: The following instructions were explained to patient and copy will need to be provided to him upon discharge: 1). You stated that you do not have a primary care physician. Therefore please schedule follow up with one of the following clinics (which ever one that you can obtain the earliest appointment) to help coordinate your health care. One of these clinics will be your primary care physician to help set up appointments and provide you with future prescriptions that you will need to have filled at your pharmacy. You will need to follow up the results of your throat cultures through one of these clinices. This appointment must take place in the next 7 days: [facility] Floor B of [facility] ([phone]) [address] [facility] ([phone]) [address] [place] [address] 2). Please have the following prescriptions filled at your pharmacy on your way from the hospital: Augmentin 875/125 mg, 1 tablet by mouth 2 times a day with breakfast and dinner (8 AM and 8 PM), Dispense #28 Prednisone 10 mg, 5 tablets by mouth at once 05/01/18, 4 tablets by mouth at once 05/02/18, 3 tablets by mouth at once 05/03/18, 2 tablet by mouth at once 05/04/18, and 1 tablet by mouth at once 05/05/18. Please take at 8 AM every day Omeprazole 40 mg, 1 tablet by mouth 1 time a day at 8 PM, Dispense #5 3). Please have a kenyan yogurt containing probiotic (good bacteria) at 10 AM and 6 PM for the next 44 days to make sure that the good bacteria are brought back into your colon. 4). You must stop drinking alcohol. It will kill you. Please go to Alcohol Anonymous at [facility] located at [address] [place] [address] in [place], [place]. The number is [phone]. 5). You urine tested positive for PCP. This drug will also kill you. call [phone] to find resources near you for help. 6). Please take care and be well. 7). Return to the Emergency Room should your symptoms worsen. 8). Please follow the above instructions. Failure to do so will result in serious consequences to your health.
--- NOTE | 2018-04-30 12:53 | CARD ---
APPROVED REPORT Date of service: 04/29/2018 EKG Measurement Heart [id number] <Conclusion> Normal sinus rhythm Normal ECG,rsr in v1
== END 2018-04-30 11:45 | disposition home or self-care (01) | DRG 159 ==
LOC: C.ER 11:21 → C.9E 15:14 → C.3T 17:04
PROVIDERS: ADMIT Family Medicine; ATTEND Family Medicine
DX: K12.2 Cellulitis and abscess of mouth (principal); J34.2 Deviated nasal septum; F17.210 Nicotine dependence, cigarettes, uncomplicated; J02.9 Acute pharyngitis, unspecified; J32.0 Chronic maxillary sinusitis; F16.90 Hallucinogen use, unspecified, uncomplicated

== ENCOUNTER 2018-09-29 13:45 | Inpatient (IN) | payer MEDICAID ==
[2018-09-29 13:46] VITALS: BMI 27.3
[2018-09-29] MEDS ORDERED: DiphenhydrAMINE 50 mg/ml Inj IVP STA (14:03)
[2018-09-29] MEDS ORDERED: DiphenhydrAMINE 50 mg/ml Inj ONE (14:13)
--- NOTE | 2018-09-29 14:27 | RAD ---
HISTORY: SOB COMPARISON: Chest x-ray performed 04/29/18 TECHNIQUE: Chest, one view. FINDINGS: LUNGS: No focal consolidation. Please note that chest x-ray has limited sensitivity for the detection of pulmonary masses. PLEURA: No significant pleural effusion identified. No definite pneumothorax . CARDIOVASCULAR: Heart size appears within normal limits. No significant atherosclerotic calcification present. OSSEOUS STRUCTURES: No acute osseous abnormality identified. VISUALIZED UPPER ABDOMEN: Unremarkable. OTHER FINDINGS: None. IMPRESSION: No focal consolidation.
[2018-09-29 14:33] LABS: BASO % 0.9 % (0.0-2.0); EOS # 0.1 K/uL (0.0-0.7); EOS % 2.1 % (0.0-4.0); HEMOGLOBIN 16.3 g/dL (12.0-18.0); LYMPH # 1.8 K/uL (1.0-4.3); LYMPH % 40.9 % (20.0-40.0); MEAN CORPUSCULAR HEMOGLOBIN 32.2 pg (27.0-31.0); MEAN CORPUSCULAR HGB CONC 34.7 g/dL (33.0-37.0); MONO # 0.4 K/uL (0.0-0.8); MONO % 8.1 % (0.0-10.0); NEUT # 2.1 K/uL (1.8-7.0); NRBC % 0.1 % (0.0-2.0); RBC 5.05 Mil/uL (4.40-5.90); RED CELL DISTRIBUTION WIDTH 12.8 % (11.5-14.5)
[2018-09-29 14:36] LABS: WHITE BLOOD COUNT 4.5 K/uL (4.8-10.8)
[2018-09-29 14:37] LABS: MEAN CELL VOLUME 92.9 fL (80.0-94.0)
[2018-09-29 14:55] LABS: ALB/GLOB RATIO 1.6 (1.0-2.1); ALBUMIN 4.8 g/dL (3.5-5.0); ALT/SGPT 92 U/L (21-72); AST/SGOT 70 U/L (17-59); BLOOD UREA NITROGEN 9 mg/dL (9-20); CALCIUM 8.8 mg/dl (8.6-10.4); GFR NON-AFRICAN AMERICAN > 60
--- NOTE | 2018-09-29 15:22 | C.PDOC ---
History Of Present Illness 27 year old male presents to ED with complaint of swelling in back of the throat that began when he woke up today. Patient states that the throat swelling makes him nauseous. Patient states that he experienced similar symptoms in April. Patient denies smoking or drinking anything abnormal. Time Seen by Provider: 09/29/18 13:59 Chief Complaint (Nursing): Respiratory Distress History Per: Patient History/Exam Limitations: None Onset/Duration Of Symptoms: Hrs Current Symptoms Are (Timing): Still Present Quality (Mouth/Throat): Swelling (back of throat) Past Medical History Reviewed: Historical Data, Nursing Documentation, Vital Signs Vital Signs: Last Vital Signs Temp 97.1 F L 09/29/18 13:57 Pulse 77 09/29/18 14:27 Resp 17 09/29/18 14:27 BP 146/89 09/29/18 14:27 Pulse Ox 95 09/29/18 14:27 - Medical History PMH: No Chronic Diseases Surgical History: No Surg Hx - [facility] Procedures CLOSURE SKIN & SUBCUTANEOUS NEC (04/24/13) TETANUS TOXOID ADMINIST (04/24/13) Family History: States: Unknown Family Hx - Social History Hx Tobacco Use: Yes Hx Alcohol Use: No Hx Substance Use: No - Immunization History Hx Tetanus Toxoid Vaccination: Yes Hx Influenza Vaccination: No Hx Pneumococcal Vaccination: No Review Of Systems Constitutional: Negative for: Fever, Chills, Weakness ENT: Positive for: Throat Swelling (back of throat) Respiratory: Negative for: Cough Gastrointestinal: Positive for: Nausea Neurological: Negative for: Weakness, Numbness, Dizziness Physical Exam - Physical Exam Appears: Well, Non-toxic, No Acute Distress Skin: Normal Color, Warm, Dry Head: Atraumatic, Normacephalic Eye(s): bilateral: Normal Inspection, PERRL, EOMI Throat: Other (mild uvular and oropharyngeal edema, mild voice changes) Neck: Normal ROM, Supple Respiratory: No Accessory Muscle Use Extremity: Bilateral: Atraumatic, Normal Color And Temperature Neurological/Psych: Oriented x3, Normal Speech, Normal Cognition ED Course And Treatment - Laboratory Results Result Diagrams: 09/29/18 14:26 09/29/18 14:26 Lab Results: Total Bilirubin 0.6 mg/dL (0.2-1.3) 09/29/18 14:26 AST 70 U/L (17-59) H D 09/29/18 14:26 ALT 92 U/L (21-72) H 09/29/18 14:26 Alkaline Phosphatase 77 U/L (38-126) 09/29/18 14:26 Total Protein 7.7 g/dL (6.3-8.3) 09/29/18 14:26 Albumin 4.8 g/dL (3.5-5.0) 09/29/18 14:26 Globulin 2.9 gm/dL (2.2-3.9) 09/29/18 14:26 Albumin/Globulin Ratio 1.6 (1.0-2.1) 09/29/18 14:26 ECG: Interpreted By Me ECG Rhythm: Sinus Rhythm ECG Interpretation: Normal Rate From EC O2 Sat by Pulse Oximetry: 95 Pulse Ox Interpretation: Normal - Radiology CXR: Interpreted by Me CXR Interpretation: Yes: No Acute Disease Progress Note: EKG and chest one view ordered for patient. Labs ordered for patient. Benadryl IVP, Pepcid IVP, methylprednisolone IVP, and Zofran IVP given to patient. Reevaluation Time: 15:20 Reassessment Condition: Improved - Physician Consult Information Outcome Of Conversation: 1415: calls to Dr Garcia, Medicine Stra[employer] Ruling [employer] Operator, no call back. 1430: d/w ICU, lisbet Buckley to ICU- will eval. 1515: d/w lisbet Young to adm to ICU. 1515: d/w Dr. Lu- ENT- recalls pt from 05/10. recommends ICU obs, Solumedrol 100 mg Q8H x 2 after initial ED dose Medical Decision Making Medical Decision Making: spontaneous uvula/OP edema pt woke with same as prior episode no obvious provoking factor stable in ED Disposition Doctor Will See Patient In The: Hospital Counseled Patient/Family Regarding: Studies Performed, Diagnosis - Disposition Disposition: HOSPITALIZED Disposition Time: 15:25 Condition: GOOD - Clinical Impression Clinical Impression: Uvulitis - Scribe Statement The provider has reviewed the documentation as recorded by the Scribe (Patricia Courtney) All medical record entries made by the Scribe were at my direction and personally dictated by me. I have reviewed the chart and agree that the record accurately reflects my personal performance of the history, physical exam, medical decision making, and the department course for this patient. I have also personally directed, reviewed, and agree with the discharge instructions and disposition.
--- NOTE | 2018-09-29 17:55 | CP.PCM.HP ---
Past Patient History - Past Medical History & Family History Past Medical History?: No - Past Social History Smoking Status: Unknown If Ever Smoked - MUSCULOSKELETAL/RHEUMATOLOGICAL Hx Falls: No - PSYCHIATRIC Hx Substance Use: No - ANESTHESIA Hx Anesthesia: No Hx Anesthesia Reactions: No Hx Malignant Hyperthermia: No Meds Allergies/Adverse Reactions: Allergies Allergy/AdvReac Type Severity Reaction Status Date / Time No Known Allergies Allergy Verified 09/29/18 13:59 Physical Exam - Constitutional Appears: Well - Head Exam Head Exam: ATRAUMATIC, NORMAL INSPECTION, NORMOCEPHALIC - Eye Exam Eye Exam: EOMI, Normal appearance, PERRL Pupil Exam: NORMAL ACCOMODATION, PERRL - ENT Exam ENT Exam: Mucous Membranes Moist, Normal Exam - Neck Exam Neck exam: Positive for: Normal Inspection - Respiratory Exam Respiratory Exam: Decreased Breath Sounds - Cardiovascular Exam Cardiovascular Exam: REGULAR RHYTHM, +S1, +S2 - GI/Abdominal Exam GI & Abdominal Exam: Diminished Bowel Sounds, Soft - Rectal Exam Rectal Exam: Deferred Results - Vital Signs Recent Vital Signs: Last Vital Signs Temp 97.1 F L 09/29/18 13:57 Pulse 64 09/29/18 17:25 Resp 17 09/29/18 17:25 BP 132/68 09/29/18 17:25 Pulse Ox 96 09/29/18 17:25 - Labs Result Diagrams: 09/29/18 14:26 09/29/18 14:26 Labs: Laboratory Results - last 24 hr 09/29/18 09/29/18 14:26 14:26 WBC 4.5 L D RBC 5.05 Hgb 16.3 Hct 46.9 MCV 92.9 D MCH 32.2 H MCHC 34.7 RDW 12.8 Plt Count 345 MPV 8.0 Neut % (Auto) 48.0 L Lymph % (Auto) 40.9 H [place] % (Auto) 8.1 Eos % (Auto) 2.1 Baso % (Auto) 0.9 Neut # (Auto) 2.1 Lymph # (Auto) 1.8 [place] # (Auto) 0.4 Eos # (Auto) 0.1 Baso # (Auto) 0.0 Sodium 141 Potassium 3.8 Chloride 105 Carbon Dioxide 28 Anion Gap 12 BUN 9 Creatinine 0.8 Est GFR ( Amer) > 60 Est GFR (Non-Af Amer) > 60 Random Glucose 99 D Calcium 8.8 Total Bilirubin 0.6 AST 70 H D ALT 92 H Alkaline Phosphatase 77 Total Protein 7.7 Albumin 4.8 Globulin 2.9 Albumin/Globulin Ratio 1.6
[2018-09-29] MEDS: Moxifloxacin IV 400mg/250ml NS 400 MG/250 ML BAG IVPB SCH (18:41)
[2018-09-29] MEDS ORDERED: Moxifloxacin IV 400mg/250ml NS 400 MG/250 ML BAG IVPB ONE (18:45)
[2018-09-29] MEDS: MethylPREDNISolone 40 mg Vial IVP SCH (21:57)
[2018-09-30] MEDS: MethylPREDNISolone 40 mg Vial IVP SCH ×2 (06:25→13:18)
[2018-09-30 08:20] VITALS: O2SAT 97
--- NOTE | 2018-09-30 08:47 | CT ---
Date of service: 09/29/2018 PROCEDURE: CT MAXILLOFACIAL BONES WITHOUT CONTRAST HISTORY: montse/pharyngeal edema COMPARISON: None available. TECHNIQUE: Contiguous axial CT images of the maxillofacial bones were obtained. Coronal and sagittal reformats were generated. Radiation dose: Total exam DLP = 1028.25 mGy-cm. This CT exam was performed using one or more of the following dose reduction techniques: Automated exposure control, adjustment of the mA and/or kV according to patient size, and/or use of iterative reconstruction technique. FINDINGS: NASAL BONES: The nasal bones are intact. ORBITS: The globes are symmetric and normal in appearance. There is an old fracture deformity in the left orbital floor. PARANASAL SINUSES/ MASTOIDS: There is mild polypoid mucosal thickening in the right maxillary sinus and secretions in the left maxillary sinus. There is scattered mucosal thickening in the ethmoid air cells. The remaining included paranasal sinuses are clear. MAXILLA: No acute fracture or bone destruction. MANDIBLE/ TEMPOROMANDIBULAR JOINTS: Unremarkable. SKULL BASE: Unremarkable. TEMPORAL BONES: Middle ears and mastoid grossly unremarkable. OTHER FINDINGS: The nasopharynx is within normal limits. The oropharynx is grossly normal in appearance without evidence for airway narrowing. The parapharyngeal spaces are preserved. The epiglottis and hypopharynx are normal. The uvula is prominent. The visualized hypopharynx and glottis are normal. Is IMPRESSION: No acute findings. Old fracture deformity in the left orbital floor. Chronic right maxillary sinusitis. Secretions in the left maxillary sinus may represent acute sinusitis in the appropriate clinical setting.
[2018-09-30 17:02] VITALS: BP 143/73; RESP 18; TEMP 98.4
[2018-09-30] MEDS: Moxifloxacin IV 400mg/250ml NS 400 MG/250 ML BAG IVPB SCH (17:23)
[2018-09-30 17:40] VITALS: PULSE 76
--- NOTE | 2018-10-01 00:02 | CON ---
DATE: 09/30/2018 REASON FOR CONSULTATION: Swollen uvula. REQUESTING PHYSICIAN: Dr. Canela. HISTORY OF PRESENT ILLNESS: This is a 27-year-old male who has episode of swollen uvula yesterday, it was severe and constant and it just started yesterday. No hoarseness. No shortness of breath. No nasal congestion or hearing loss. PAST MEDICAL HISTORY: As noted in the chart by me. MEDICATIONS: As noted in the chart by me. ALLERGIES: NOTED IN THE CHART BY ME. PHYSICAL EXAMINATION: HEAD: Atraumatic and normocephalic. FACE: Good facial movements bilaterally. CONSTITUTIONAL: Well fed, well nourished. COMMUNICATION: Communicates well and appropriately. EXTERNAL NOSE AND EARS: No masses, no lesions, no erythema, no edema. INTERNAL NOSE: Deviated septum. No masses, no lesions, no erythema, no edema. ORAL CAVITY AND OROPHARYNX: No masses, no lesions, no erythema, no edema. LIPS AND GUMS: No masses, no lesions, no erythema, no edema. NECK: Supple. THYROID: No thyromegaly. No goiter. LYMPH NODES: No lymphadenopathy of the neck. ASSESSMENT: 1. Uvulitis, resolved. 2. Deviated septum. PLAN: Follow up in the office. He can be discharged home. Tho Lu MD
== END 2018-09-30 17:53 | disposition home or self-care (01) | DRG 185 ==
LOC: C.ER 13:45 → C.9E 15:18 → C.6T 18:26
PROVIDERS: ADMIT Internal Medicine Nephrology; ATTEND Internal Medicine Nephrology
DX: K12.2 Cellulitis and abscess of mouth (principal); J34.2 Deviated nasal septum; F17.210 Nicotine dependence, cigarettes, uncomplicated

== ENCOUNTER 2019-01-03 17:48 | Emergency (ER) | payer MEDICAID ==
[2019-01-03 17:49] VITALS: BMI 27.3
[2019-01-03 17:55] VITALS: TEMP 98.4
--- NOTE | 2019-01-03 18:26 | C.PDOC ---
History Of Present Illness 28 year old male presents to ED with complaint of left arm skin irritation for the past 4 days. Patient had a tattoo done on 12/28. Patient states that the tattoo is healing well until he applied lubriderm on 01/02. He states he woke up the next day with redness, burning, and skin peeling. Patient states they had limited relief with Tylenol and A&D ointment. He denies fever or discharge. L SKIN IRRITATION X 4 DAYS. S/P TATTOO 12/28. PS HEALING WELL UNTIL APPLIED LUBRIDERM 01/02. AWOKE NEXT DAY W REDNESS, BURNING, SKIN PEELING. LIMITED RELIEF W TYLENOL, A&D OINTMENT EXAM NONTOXIC SKIN +CONTACT DERMATITIS, DESQUAMATION L UPPER AND FOREARM. NO EDEMA, WEEPING. EXT AROM WO DIFF Time Seen by Provider: 01/03/19 18:23 Chief Complaint (Nursing): Abnormal Skin Integrity History Per: Patient History/Exam Limitations: no limitations Onset/Duration Of Symptoms: Days (4) Current Symptoms Are (Timing): Still Present Location Of Injury: Left: Arm (skin irritation) Quality Of Symptoms: Painful Past Medical History Reviewed: Historical Data, Nursing Documentation, Vital Signs Vital Signs: Last Vital Signs Temp 98.4 F 01/03/19 17:51 Pulse 89 01/03/19 17:51 Resp 18 01/03/19 17:51 BP 110/76 01/03/19 17:51 Pulse Ox 100 01/03/19 17:51 Primary Care Provider: Shaik Bhakta - Medical History PMH: No Chronic Diseases Surgical History: No Surg Hx - [facility] Procedures CLOSURE SKIN & SUBCUTANEOUS NEC (04/24/13) TETANUS TOXOID ADMINIST (04/24/13) Family History: States: Unknown Family Hx - Social History Hx Tobacco Use: Yes Hx Alcohol Use: No Hx Substance Use: No - Immunization History Hx Tetanus Toxoid Vaccination: Yes Hx Influenza Vaccination: No Hx Pneumococcal Vaccination: No Review Of Systems Except As Marked, All Systems Reviewed And Found Negative. Skin: Positive for: Other (left arm skin irritation with redness, burning, and skin peeling) Physical Exam - Physical Exam Appears: Well, Non-toxic, No Acute Distress, Other Skin: Other (+contact dermatitis, desquamation to the left upper arm and forearm. No edema, weeping) Head: Atraumatic, Normacephalic Neck: Normal ROM, Supple Chest: Symmetrical, No Deformity Cardiovascular: Rhythm Regular, No Murmur Respiratory: No Accessory Muscle Use, No Rales, No Rhonchi, No Wheezing Gastrointestinal/Abdominal: Soft, No Tenderness Extremity: Capillary Refill (<2 seconds) Extremity: Bilateral: Atraumatic, Normal Color And Temperature, Normal ROM Pulses: Left Radial: Normal, Right Radial: Normal Neurological/Psych: Oriented x3, Normal Speech, Normal Cognition ED Course And Treatment O2 Sat by Pulse Oximetry: 100 (in RA) Pulse Ox Interpretation: Normal Progress Note: Patient given Keflex PO, Motrin PO, Tylenol PO, and Ultram PO. Disposition Counseled Patient/Family Regarding: Diagnosis, Need For Followup, Rx Given - Disposition Referrals: YOUR,PMD [Other] [facility] [Other] Disposition: HOME/ ROUTINE Disposition Time: 18:32 Condition: IMPROVED Prescriptions: Acetaminophen [Tylenol Extra Strength] 2 tab PO Q6 #30 tablet Cephalexin [cephalexin] 500 mg PO BID #14 cap Ibuprofen [Motrin] 600 mg PO Q6 #30 tab Tramadol HCl [Ultram] 50 mg PO QID #20 tab Instructions: Contact Dermatitis (DC) Forms: [facility] (Bulgarian) - Clinical Impression Clinical Impression: Contact dermatitis - Scribe Statement The provider has reviewed the documentation as recorded by the Scribe (Patricia Courtney) All medical record entries made by the Scribe were at my direction and personally dictated by me. I have reviewed the chart and agree that the record accurately reflects my personal performance of the history, physical exam, medical decision making, and the department course for this patient. I have also personally directed, reviewed, and agree with the discharge instructions and disposition.
[2019-01-03 18:53] VITALS: BP 132/67; PULSE 68; RESP 20
[2019-01-03 19:11] VITALS: O2SAT 100
== END 2019-01-03 18:53 | disposition home or self-care (01) ==
LOC: C.ER 17:48
DX: L25.9 Unspecified contact dermatitis, unspecified cause (principal)